=== PATIENT | female | born 1985 | race Caucasian/White ===

== ENCOUNTER 2017-09-19 20:02 | Emergency (ER) | payer SELFPAY ==
[~2017-09-19] VITALS: Ht 160 cm; Wt 70.3 kg
--- NOTE | 2017-09-19 20:10 | NUR ---
URINE SAMPLE COLLECTED AND LAB CALLED FOR PICKUP
--- NOTE | 2017-09-19 20:15 | NUR ---
BBRA 39 FROM HOME WITH C/O SYNCOPAL EPISODE WHEN CHANGING POSITION FROM LAYING TO STANDING. PT STATES SHE HAD A RECENT COSMETIC SX EARLIER TODAY FOR A TUMMY TUCK AND BREAST LIFT. PER EMS PT WAS HYPOTENSIVE IN FIELD. PT IS AAOX.4 RESP EVEN AND UNLABORED. SKIN WNL AND NONE DIAPHORETIC. VSS. PT SAFETY AND COMFORT MEASURES IN PLACE. PT STATES SHE HIT HER HEAD. PER FAMILY/FRIEND, PT +KO. NO S/S OF BLEEDING NOTED. AWAITING MD FOR EVAL.
[2017-09-19] MEDS ORDERED: IV NS 0.9% 1,000 ML BAG IV ONE (20:30)
[2017-09-19 20:31] LABS: BASOPHILS % (AUTO) 0.2 % (0.0-2.0); EOSINOPHILS # (AUTO) 0.2 /CMM (0.0-0.7); EOSINOPHILS % (AUTO) 0.7 % (0.0-6.0); HEMATOCRIT 33 % (33-45); HEMOGLOBIN 11.5 g/dL (11.5-14.8); LYMPHOCYTES # (AUTO) 0.5 /CMM (0.8-4.8); LYMPHOCYTES % (AUTO) 2.3 % (20.0-44.0); MEAN CORPUSCULAR HEMOGLOBIN 32 PG (26.0-33.0); MEAN CORPUSCULAR HGB CONC 35 g/dl (31.0-36.0); MEAN CORPUSCULAR VOLUME 90 fL (82-100); MONOCYTES # (AUTO) 1.2 /CMM (0.1-1.30); MONOCYTES % (AUTO) 5.2 % (2.0-12.0); NEUTROPHILS # (AUTO) 20.5 /CMM (1.8-8.9); NEUTROPHILS % (AUTO) 91.6 % (43.0-81.0); PLATELET COUNT (AUTO) 275 /CMM (150-450); RDW COEFFICIENT OF VARIATION 11.4 (11.5-15.0); RED BLOOD CELL COUNT(AUTO) 3.62 MIL/uL (4.0-5.2); WHITE BLOOD COUNT (AUTO) 22.4 K/uL (4.3-11.0)
--- NOTE | 2017-09-19 20:33 | NUR ---
PT TO CT
[2017-09-19 20:41] LABS: CALCIUM, SERUM 7.6 mg/dL (8.5-10.1); CREATININE 1.1 mg/dL (0.6-1.3); POTASSIUM 4.6 mmol/L (3.5-5.1)
[2017-09-19 20:49] LABS: INR 1.06 (0.85-1.15)
--- NOTE | 2017-09-19 21:10 | NUR ---
ALTAGRACIA GAGNON DRAINAGE DONE BY PT. TOTAL OUTPUT MEASURES 125ML OF RED BLOODY TINGED DRAINAGE. AWARE.
[2017-09-19 22:06] VITALS: BP 123/69
--- NOTE | 2017-09-19 22:11 | NUR ---
Patient discharged to home in stable condition. Written and verbal after care instructions given. Patient verbalizes understanding of instruction.IV removed. Catheter intact and site benign. Pressure and 4x4 applied to site. No bleeding noted. VSS upon discharge. PT wheeled out by EMT to pt's car.
== END 2017-09-19 22:07 | disposition home or self-care (01) ==
LOC: ER 20:04
DX: R55 Syncope and collapse (principal); E86.0 Dehydration
CPT/HCPCS: 36415; 70450; 80048; 84703; 85025; 85730; 96360; 99285; A4606; J7030; Z7610